=== PATIENT | female | born 1980 | race Caucasian/White ===

== ENCOUNTER 2018-05-30 11:09 | Day surgery (SDC) | payer OTHER | END 2018-05-30 16:00 | disposition home or self-care (01) | LOC: AMB-ENDOS 11:09 | DX: K64.2 Third degree hemorrhoids (principal); K64.1 Second degree hemorrhoids; Z85.3 Personal history of malignant neoplasm of breast; Z12.11 Encounter for screening for malignant neoplasm of colon ==